=== PATIENT | male | born 1990 | race Caucasian/White ===

== ENCOUNTER 2024-10-10 21:01 | Emergency (ER) | payer BC ==
[~2024-10-10] VITALS: Ht 172.7 cm; Wt 86.2 kg
[2024-10-10] MEDS ORDERED: IBUPROFEN 400 MG TABLET ONE (22:38)
[2024-10-10] MEDS: IBUPROFEN 400 MG TABLET PO ONE (22:51)
[2024-10-10 23:41] VITALS: BP 118/78; TEMP 98; O2SAT 98
== END 2024-10-10 23:42 | disposition home or self-care (01) ==
LOC: ER 21:21
DX: R07.81 Pleurodynia (principal); Z88.0 Allergy status to penicillin
CPT/HCPCS: 71100-TC